=== PATIENT | male | born 1995 | race Caucasian/White ===

== ENCOUNTER 2018-02-09 20:57 | Emergency (ER) | payer OTHER ==
[~2018-02-09] VITALS: Ht 154.9 cm; Wt 56.9 kg
[2018-02-09 23:25] VITALS: BP 111/73
== END 2018-02-09 23:26 | disposition home or self-care (01) ==
LOC: ER 20:57
DX: S30.850A Superficial foreign body of lower back and pelvis, initial encounter (principal); W45.8XXA Other foreign body or object entering through skin, initial encounter; Y92.89 Other specified places as the place of occurrence of the external cause; Y93.89 Activity, other specified; Y99.8 Other external cause status